=== PATIENT | male | born 1975 | race American Indian/Alaskan Native ===

== ENCOUNTER 2021-07-22 06:22 | Emergency (ER) | payer BC ==
[2021-07-22 06:47] VITALS: BP 132/92
[2021-07-22 08:02] LABS: Basophils # (Auto) 0.1 K/mm3 (0.0-0.1); Basophils % (Auto) 0.8 % (0.0-1.8); Eosinophils # (Auto) 0.2 K/mm3 (0.0-0.4); Eosinophils % (Auto) 1.8 % (0.0-4.3); Hematocrit 41.6 % (35.5-45.6); Hemoglobin 14.7 gm/dl (11.8-15.2); Lymphocytes # (Auto) 2.3 K/mm3 (1.2-5.4); Lymphocytes % (Auto) 20.4 % (13.4-35.0); Mean Corpuscular HGB Conc 35 % (32-34); Mean Corpuscular Volume 84 fl (84-94); Monocytes # (Auto) 0.6 K/mm3 (0.0-0.8); Monocytes % (Auto) 5.1 % (0.0-7.3); Platelet Count 475 K/mm3 (140-440); Red Blood Count 4.96 M/mm3 (3.65-5.03); Red Cell Distribution Width 14.1 % (13.2-15.2)
[2021-07-22 08:11] LABS: INR 0.95 (0.87-1.13)
[2021-07-22 08:12] LABS: Partial Thromboplastin Time 27.4 Sec. (24.2-36.6)
--- NOTE | 2021-07-22 08:21 | Emergency Department Report ---
ED Palpitations HPI - General Chief Complaint: Arrhythmia/Palpitations Stated Complaint: RAPID HEART BEAT Time Seen by Provider: 07/22/21 07:28 Source: patient Mode of arrival: Ambulatory Limitations: No Limitations - History of Present Illness Initial Comments: This is a 45-year-old male nontoxic, well nourished in appearance, no acute signs of distress presents to the ED with c/o of intermittent heart palpations x 3 weeks. Last episode was 2 days ago. Patient denies any chest pain. Stated it is aggravated during a stressful situation. HX of anxiety. Patient stated has some mild cough but is dry. Patient denies any upper respiratory symptoms. Patient denies any shortness of breath, hemoptysis, fever, chills, nausea, vomiting, headache, stiff neck, numbness, tingling, abdominal pain. Patient denies pleuritic chest pain. Patient denies any recent travels or long car rides. Patient denies any recent surgeries or any sick contacts. Patient denies any drug allergies or significant PMH. MD Complaint: palpitations -: week(s) Associated Symptoms: denies other symptoms. denies: chest pain, shortness of breath, syncope, near-syncope, nausea/vomiting, anxiety, diaphoresis, cough, parasthesias, feeling of impending doom, muscle cramps - Related Data Home Medications Medication Instructions Recorded Confirmed Last Taken No Known Home Medications [No 07/22/21 07/22/21 Unknown Reported Home Medications] Allergies Allergy/AdvReac Type Severity Reaction Status Date / Time No Known Allergies Allergy Verified 07/22/21 06:30 ED Review of Systems ROS: Stated complaint: RAPID HEART BEAT Other details as noted in HPI Comment: All other systems reviewed and negative Constitutional: denies: chills, fever Eyes: denies: eye pain, eye discharge, vision change ENT: denies: ear pain, throat pain Respiratory: denies: cough, shortness of breath, wheezing Cardiovascular: denies: chest pain, palpitations Endocrine: no symptoms reported Gastrointestinal: denies: abdominal pain, nausea, diarrhea Genitourinary: denies: urgency, dysuria Musculoskeletal: denies: back pain, joint swelling, arthralgia Skin: denies: rash, lesions Neurological: denies: headache, weakness, paresthesias Psychiatric: denies: anxiety, depression Hematological/Lymphatic: denies: easy bleeding, easy bruising ED Past Medical Hx - Past Medical History Previous Medical History?: No - Surgical History Past Surgical History?: No - Social History Smoking Status: Unknown if ever smoked - Medications Home Medications: Home Medications Medication Instructions Recorded Confirmed Last Taken Type No Known Home Medications [No 07/22/21 07/22/21 Unknown History Reported Home Medications] ED Physical Exam - General Limitations: No Limitations General appearance: alert, in no apparent distress - Head Head exam: Present: atraumatic, normocephalic - Eye Eye exam: Present: normal appearance - Neck Neck exam: Present: normal inspection, full ROM. Absent: lymphadenopathy - Respiratory Respiratory exam: Present: normal lung sounds bilaterally. Absent: respiratory distress, wheezes, rales, rhonchi, stridor, chest wall tenderness, accessory muscle use, decreased breath sounds, prolonged expiratory - Cardiovascular Cardiovascular Exam: Present: regular rate, normal rhythm, normal heart sounds. Absent: bradycardia, tachycardia, irregular rhythm, systolic murmur, diastolic murmur, rubs, gallop - GI/Abdominal GI/Abdominal exam: Present: soft. Absent: distended, tenderness - Extremities Exam Extremities exam: Present: full ROM, normal capillary refill - Back Exam Back exam: Present: full ROM - Neurological Exam Neurological exam: Present: alert, oriented X3, normal gait - Psychiatric Psychiatric exam: Present: normal affect, normal mood - Skin Skin exam: Present: warm, dry, intact, normal color. Absent: rash ED Course Vital Signs 07/22/21 07/22/21 07/22/21 06:22 08:07 08:09 Temperature 98.0 F Pulse Rate 89 93 H Respiratory 18 19 18 Rate Blood Pressure 132/92 O2 Sat by Pulse 98 98 100 Oximetry 07/22/21 07/22/21 07/22/21 08:15 08:31 08:45 Temperature Pulse Rate 87 88 94 H Respiratory 17 15 17 Rate Blood Pressure O2 Sat by Pulse 99 99 99 Oximetry - Reevaluation(s) Reevaluation #1: 07/22/21 08:21 Patient is speaking in full sentences with no signs of distress noted. ED Medical Decision Making - Lab Data Result diagrams: 07/22/21 07:51 07/22/21 07:51 Lab Results 07/22/21 07/22/21 07/22/21 Range/Units 07:51 07:51 07:51 WBC 11.2 H (4.5-11.0) K/mm3 RBC 4.96 (3.65-5.03) M/mm3 Hgb 14.7 (11.8-15.2) gm/dl Hct 41.6 (35.5-45.6) % MCV 84 (84-94) fl MCH 30 (28-32) pg MCHC 35 H (32-34) % RDW 14.1 (13.2-15.2) % Plt Count 475 H (140-440) K/mm3 Lymph % (Auto) 20.4 (13.4-35.0) % [place] % (Auto) 5.1 (0.0-7.3) % Eos % (Auto) 1.8 (0.0-4.3) % Baso % (Auto) 0.8 (0.0-1.8) % Lymph # (Auto) 2.3 (1.2-5.4) K/mm3 [place] # (Auto) 0.6 (0.0-0.8) K/mm3 Eos # (Auto) 0.2 (0.0-0.4) K/mm3 Baso # (Auto) 0.1 (0.0-0.1) K/mm3 Seg Neutrophils % 71.9 H (40.0-70.0) % Seg Neutrophils # 8.0 H (1.8-7.7) K/mm3 PT 13.3 (12.2-14.9) Sec. INR 0.95 (0.87-1.13) APTT 27.4 (24.2-36.6) Sec. Sodium 141 (137-145) mmol/L Potassium 4.3 (3.6-5.0) mmol/L Chloride 104.0 (98-107) mmol/L Carbon Dioxide 26 (22-30) mmol/L Anion Gap 15 mmol/L BUN 13 (9-20) mg/dL Creatinine 1.1 (0.8-1.3) mg/dL Estimated GFR > 60 ml/min BUN/Creatinine Ratio 12 % Glucose 102 H (75-100) mg/dL Calcium 10.0 (8.4-10.2) mg/dL Magnesium 2.20 (1.7-2.3) mg/dL Total Bilirubin 0.40 (0.1-1.2) mg/dL AST 14 (5-40) units/L ALT 18 (7-56) units/L Alkaline Phosphatase 79 (35-129) units/L Troponin T < 0.010 (0.00-0.029) ng/mL Total Protein 8.3 H (6.3-8.2) g/dL Albumin 4.6 (3.9-5) g/dL Albumin/Globulin Ratio 1.2 % TSH (0.270-4.200) mlU/mL Urine Color (Yellow) Urine Turbidity (Clear) Urine pH (5.0-7.0) Ur Specific [place] (1.003-1.030) Urine Protein (Negative) mg/dL Urine Glucose (UA) (Negative) mg/dL Urine Ketones (Negative) mg/dL Urine Blood (Negative) Urine Nitrite (Negative) Urine Bilirubin (Negative) Urine Urobilinogen (<2.0) mg/dL Ur Leukocyte Esterase (Negative) Urine WBC (Auto) (0.0-6.0) /HPF Urine RBC (Auto) (0.0-6.0) /HPF U Epithel Cells (Auto) (0-13.0) /HPF Urine Mucus /HPF Urine Opiates Screen Urine Methadone Screen Ur Barbiturates Screen Ur Phencyclidine Scrn Ur Amphetamines Screen U Benzodiazepines Scrn Urine Cocaine Screen U Marijuana (THC) Screen 07/22/21 07/22/21 07/22/21 Range/Units 07:51 Unknown Unknown WBC (4.5-11.0) K/mm3 RBC (3.65-5.03) M/mm3 Hgb (11.8-15.2) gm/dl Hct (35.5-45.6) % MCV (84-94) fl MCH (28-32) pg MCHC (32-34) % RDW (13.2-15.2) % Plt Count (140-440) K/mm3 Lymph % (Auto) (13.4-35.0) % [place] % (Auto) (0.0-7.3) % Eos % (Auto) (0.0-4.3) % Baso % (Auto) (0.0-1.8) % Lymph # (Auto) (1.2-5.4) K/mm3 [place] # (Auto) (0.0-0.8) K/mm3 Eos # (Auto) (0.0-0.4) K/mm3 Baso # (Auto) (0.0-0.1) K/mm3 Seg Neutrophils % (40.0-70.0) % Seg Neutrophils # (1.8-7.7) K/mm3 PT (12.2-14.9) Sec. INR (0.87-1.13) APTT (24.2-36.6) Sec. Sodium (137-145) mmol/L Potassium (3.6-5.0) mmol/L Chloride (98-107) mmol/L Carbon Dioxide (22-30) mmol/L Anion Gap mmol/L BUN (9-20) mg/dL Creatinine (0.8-1.3) mg/dL Estimated GFR ml/min BUN/Creatinine Ratio % Glucose (75-100) mg/dL Calcium (8.4-10.2) mg/dL Magnesium (1.7-2.3) mg/dL Total Bilirubin (0.1-1.2) mg/dL AST (5-40) units/L ALT (7-56) units/L Alkaline Phosphatase (35-129) units/L Troponin T (0.00-0.029) ng/mL Total Protein (6.3-8.2) g/dL Albumin (3.9-5) g/dL Albumin/Globulin Ratio % TSH 1.040 (0.270-4.200) mlU/mL Urine Color Yellow (Yellow) Urine Turbidity Clear (Clear) Urine pH 5.0 (5.0-7.0) Ur Specific [place] 1.031 H (1.003-1.030) Urine Protein 30 mg/dl (Negative) mg/dL Urine Glucose (UA) Neg (Negative) mg/dL Urine Ketones Tr (Negative) mg/dL Urine Blood Mod (Negative) Urine Nitrite Neg (Negative) Urine Bilirubin Neg (Negative) Urine Urobilinogen < 2.0 (<2.0) mg/dL Ur Leukocyte Esterase Neg (Negative) Urine WBC (Auto) < 1.0 (0.0-6.0) /HPF Urine RBC (Auto) 5.0 (0.0-6.0) /HPF U Epithel Cells (Auto) < 1.0 (0-13.0) /HPF Urine Mucus Few /HPF Urine Opiates Screen Negative Urine Methadone Screen Negative Ur Barbiturates Screen Negative Ur Phencyclidine Scrn Negative Ur Amphetamines Screen Negative U Benzodiazepines Scrn Negative Urine Cocaine Screen Negative U Marijuana (THC) Screen Negative - EKG Data 07/22/21 09:37 Normal sinus rhythm at [address] or T wave abnormalities. Reviewed and signed by MD - Radiology Data [facility] [address] [place] [address] XRay Report Signed Patient: DONNA CHERRY MR#: [id number] : 1975 Acct:[id number] Age/Sex: 45 / M ADM Date: 07/22/21 Loc: ED Attending Dr: Ordering Physician: BELEN COHEN NP Date of Service: 07/22/21 Procedure(s): XR chest routine 2V Accession Number(s): [id number] cc: BELEN COHEN NP Fluoro Time In Minutes: CHEST 2 VIEWS INDICATION: Chest Pain. COMPARISON: None FINDINGS: SUPPORT DEVICES: None. HEART: Within normal limits. LUNGS/PLEURA: No acute air space or interstitial disease. No pneumothorax. ADDITIONAL FINDINGS: None. IMPRESSION: 1. No acute findings. Signer Name: Ozzie Edwards MD Signed: 07/22/2021 8:18 AM Workstation Name: [id number] Transcribed By: BHARATH Dictated By: Ozzie Edwards MD Electronically Authenticated By: Ozzie Edwards MD Signed Date/Time: 07/22/21817 DD/ 7 TD/TT: - Medical Decision Making 45-year-old male that presents with palpitations. Patient is stable and was examined by me. Patient has been on a liquor runner and no abnormal rhythm noted. Labs has been obtained. Patient throughout the ED did not have any heart palpitation which last episode was about 2 days ago. Otherwise physical exam is unremarkable. Patient is notified of the imaging results, EKG results and lab results with no questions noted by the patient. Patient was instructed to follow-up with a bakery associate doctor in 3-5 days or if symptoms worsen and continue return to emergency room as soon as possible. At time of discharge, the patient does not seem toxic or ill in appearance. No acute signs of distress noted. Patient agrees to discharge treatment plan of care. No further questions noted by the patient. Critical care attestation.: If time is entered above; I have spent that time in minutes in the direct care of this critically ill patient, excluding procedure time. ED Disposition Clinical Impression: Palpitations with regular cardiac rhythm Disposition: HOME / SELF CARE / HOMELESS Is pt being admited?: No Does the pt Need Aspirin: No Condition: Stable Instructions: Palpitations, [id number] Additional Instructions: Follow-up with a bakery associate doctor in 3-5 days or if symptoms worsen and continue return to emergency room as soon as possible. Referrals: PRIMARY CAREMD [Primary Care Provider] - 3-5 Days NEW URIBE MD [Staff Physician] - 3-5 Days DEBBY ABREU MD [Staff Physician] - 3-5 Days Forms: Work/School Release Form(ED) Time of Disposition: 09:39
[2021-07-22 08:31] LABS: Alanine Aminotransferase 18 units/L (7-56); Albumin 4.6 g/dL (3.9-5); BUN/Creatinine Ratio 12; Blood Urea Nitrogen 13 mg/dL (9-20); Hemolysis Index 2
[2021-07-22 09:15] LABS: Bilirubin,Urine NEG (Negative); Blood,Urine MOD (Negative); Color,Urine Yellow (Yellow); Mucus,Urine FEW /HPF; Urobilinogen,Urine < 2.0 mg/dL (<2.0); WBC,Urine < 1.0 /HPF (0.0-6.0)
[2021-07-22 09:24] LABS: Amphetamine Screen,Urine Negative; Benzodiazepines Screen,Urine Negative; Cannabinoid Screen,Urine Negative; Cocaine Screen,Urine Negative; Methadone Screen,Urine Negative; Opiate Screen,Urine Negative
--- NOTE | 2021-07-23 08:45 | Electrocardiograph Report ---
[facility] Test Date: 2021-07-22 Test Time: 06:36:07 Pat Name: DONNA CHERRY Department: Room: Gender: M Bean [employer]: : 1975 Requested By: VIOLETTE NUGENT Order Number: [id number] Reading MD: Zach Lozada Measurements Intervals [place] Rate: 102 P: 55 AL: 157 QRS: 33 QRSD: 88 T: 60 QT: 357 QTc: 466 Interpretive Statements Sinus tachycardia No previous ECG available for comparison Electronically Signed On 07-23-2021 8:45:02 EDT by Zach Lozada
== END 2021-07-22 09:56 | disposition home or self-care (01) ==
LOC: ED 06:22
DX: R00.2 Palpitations (principal)
CPT/HCPCS: 36415; 71046; 80053; 80307; 81001; 83735; 84443; 84484; 85025; 85610; 85730; 93005; 99284